=== PATIENT | male | born 1990 | race Caucasian/White ===

== ENCOUNTER 2016-03-30 18:22 | Emergency (ER) | payer OTHER ==
[2016-03-30 19:25] VITALS: BP 152/91; PULSE 82; TEMP 98.3; BMI 35.4
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
[2016-03-30] MEDS ORDERED: ACETAMINOPHEN 325 MG TABLET (FP) PO ONE (20:25)
[2016-03-30] MEDS ORDERED: ACETAMINOPHEN 325 MG TABLET (FP) ONE (20:42)
== END 2016-03-30 21:45 | disposition home or self-care (01) ==
LOC: FER 18:22
DX: S02.609A Fracture of mandible, unspecified, initial encounter for closed fracture (principal); Y04.2XXA Assault by strike against or bumped into by another person, initial encounter; Y93.89 Activity, other specified; Y92.39 Other specified sports and athletic area as the place of occurrence of the external cause; F17.210 Nicotine dependence, cigarettes, uncomplicated
CPT/HCPCS: 70486-TC; 99283-25